=== PATIENT | male | born 1930 | race Caucasian/White ===

== ENCOUNTER → 2016-04-11 | Outpatient (CLI) | payer MEDICARE ==
[~2016-04-11] MED LIST: ASP81TEC PO; ASPI-586 PO; ASPI-983 PO; ATEN25TA PO; AVADART; AVOD0.5CAP PO; CLON1PAT33 TD; CLOP75TA PO; ISM30TCR PO; ISOS30TA3 PO; LISI10TA PO; MELA1CAP3 PO; METO50TA2 PO; MTP50T PO; MULT-35 PO; MULT1CAP27 PO; NYST1000 PO; OMEP40CA36 PO; POLY1530 PO; RT-ALBUINH IH; SIME125C PO; SIMV20TA3 PO; SIMV40TA4 PO; WHEA1POW PO
--- OUTSIDE RECORDS SUMMARY | 2016-04-11 14:08 | XMS REPORT | Continuity of Care Document ---
Author Author [facility] Organization [facility] Address Unknown Phone Unavailable Care Team Providers Care Social Professionals Name Role Phone ELISEO JIMENEZ MD PCP Insurance Providers Payer Name Policy Number Subscriber Name Relationship W[employer] Medicare [id number] Kraig Pack 18 Self / Same As Patient Blue Cross [facility] Supp [id number] Kraig Pack 18 Self / Same As Patient Advance Directives Directive Response Recorded Date/Time Advance Directives Yes 03/30/14 10:43am Health Care Power of Office Employee Y YOSEF SEWELL 03/30/14 10:43am Organ Donor No 03/30/14 10:43am Resuscitation Status Full Code 03/30/14 10:43am Problems No known problems or medical conditions. Medications Medication Dose Route Sig Days/Qty Instructions Order Date Discontinued Date Status [Avadart] DAILY 12/21/09 12/21/09 Discontinued Multivitamins 1 Each PO DAILY 12/21/09 Active Aspirin 81 Mg PO DAILY 12/21/09 Active Dutasteride 0.5 Mg PO DAILY 12/21/09 09/05/10 Discontinued Clopidogrel Bisulfate 75 Mg PO DAILY 02/25/10 03/30/14 Discontinued Simvastatin 40 Mg PO DAILY 02/25/10 Active Metoprolol Tartrate (Lopressor) 50 Mg PO DAILY 02/26/10 Active Isosorbide Mononitrate 30 Mg PO DAILY@0630 02/26/10 Active Lisinopril (Zestril) 10 Mg PO DAILY 03/28/10 03/30/14 Discontinued Social History Social History Problem Response Recorded Date/Time Recent Foreign Travel No 03/30/2014 10:56am Smoking Status Never a Smoker 03/30/2014 10:52am Do you dip or chew tobacco? No 03/30/2014 10:52am Query Response Start Date Stop Date Smoking Status Never a Smoker Hospital Discharge Instructions No hospital discharge instructions. Plan of Care No plan of care. Functional Status No functional status results. Allergies, Adverse Reactions, Alerts Allergen Type Severity Reaction Status Last Updated No Known Drug Allergies Active 12/21/09 Immunizations No immunization records. Vital Signs Acute Vital Signs Vital Response Date/Time Temperature (Fahrenheit) 98.0 degrees F (97.6 - 99.5) Temperature (Calculated Celsius) 36.64191 degrees C (36.4 - 37.5) Temperature Source Tympanic Pulse Rate (adult) 56 bpm (60 - 90) Respiratory Rate 14 bpm (12 - 24) O2 Sat by Pulse Oximetry 96 % (88 - 100) Blood Pressure 109/66 mm Hg Blood Pressure 109/66 mm Hg Pain Pain Intensity 0 Pain Pain Intensity 0 Height (Feet) 6 feet Height (Inches) 1.00 inches Height (Calculated Centimeters) 185.163519 cm Weight (Pounds) 240 pounds Weight (Calculated Grams) 888249.170 gm Weight (Calculated Kilograms) 108.335158 kilograms Height 6 ft 1 in Weight 240 lb Body Mass Index 31.7 kg/m^2 Results No known relevant diagnostic tests, laboratory data and/or discharge summary. Procedures Procedure Status Date Provider(s) Diagnostic colonoscopy completed 03/30/14 SHONNA TORO MD Encounters Encounter Location Date/Time Registered Surgical Day Care [facility] 03/30/14 8:46am Registered Clinic [facility] 03/26/14 6:18am
== END ==
LOC: RAD 14:04
PROVIDERS: ATTEND Internal Medicine Cardiovascular Disease
DX: I73.9 Peripheral vascular disease, unspecified (principal); I65.23 Occlusion and stenosis of bilateral carotid arteries; I25.10 Atherosclerotic heart disease of native coronary artery without angina pectoris; E78.4 Other hyperlipidemia; R06.09 Other forms of dyspnea
CPT/HCPCS: 93923

== ENCOUNTER → 2016-04-18 | Outpatient (CLI) | payer MEDICARE ==
[~2016-04-18] VITALS: Ht 185.4 cm; Wt 107.0 kg
[~2016-04-18] MED LIST changes: +REGADENOSON 0.4 MG/5 ML SYR (LEXISCAN) IV ONE
--- OUTSIDE RECORDS SUMMARY | 2016-04-18 11:03 | XMS REPORT | Continuity of Care Document ---
Author Author [facility] Organization [facility] Address Unknown Phone Unavailable Care Team Providers Care Regulated Program Manager Name Role Phone ELISEO JIMENEZ MD PCP Insurance Providers Payer Name Policy Number Subscriber Name Relationship Wps Medicare [id number] Kraig Pack 18 Self / Same As Patient Blue Cross [facility] Supp [id number] Kraig Pack 18 Self / Same As Patient Advance Directives Directive Response Recorded Date/Time Advance Directives Yes 03/30/14 10:43am Health Care Power of Lifestyle Consultant Y YOSEF SEWELL 03/30/14 10:43am Organ Donor [...] F (97.6 - 99.5) Temperature (Calculated Celsius) 36.93104 degrees C (36.4 - 37.5) Temperature Source Tympanic Pulse Rate (adult) 56 bpm (60 - 90) Respiratory Rate 14 bpm (12 - 24) O2 Sat by Pulse Oximetry 96 % (88 - 100) Blood Pressure 109/66 mm Hg Blood Pressure 109/66 mm Hg Pain Pain Intensity 0 Pain Pain Intensity 0 Height (Feet) 6 feet Height (Inches) 1.00 inches Height (Calculated Centimeters) 185.994472 cm Weight (Pounds) 240 pounds Weight (Calculated Grams) 780495.170 gm Weight (Calculated Kilograms) 108.462638 kilograms Height 6 ft 1 in Weight 240 lb Body Mass Index 31.7 kg/m^2 Results No known relevant diagnostic tests, laboratory data and/or discharge summary. Procedures Procedure Status Date Provider(s) Diagnostic colonoscopy completed 03/30/14 SHONNA TORO MD Encounters Encounter Location Date/Time Registered Surgical Day Care [facility] 03/30/14 8:46am Registered Clinic [facility] 03/26/14 6:18am
[2016-04-18] MEDS: CATHETER FLUSH 10 ML SYR IV PRN ×2 (11:42→13:05)
[2016-04-18 13:03] VITALS: BP 120/76
--- NOTE | 2016-04-20 08:16 | STRESS TEST ---
PROCEDURE PHYSICIAN: SOLANGE BERMAN DATE OF PROCEDURE: 04/18/2016 RESTING AND POST REGADENOSON TECHNETIUM 99M TETROFOSMIN SPECT CT IMAGING: ORDERING PHYSICIAN: Dr. Berman. PRIMARY PHYSICIAN: Dr. Belcher. INDICATION FOR THE PROCEDURE: Coronary artery disease. Baseline images were carried out after injection of 10.13 mCi of technetium 99m tetrofosmin. This was followed by 0.4 mg of regadenoson and 29 mCi of technetium 99m tetrofosmin for stress imaging. The electrocardiogram showed sinus rhythm with incomplete right bundle branch block at baseline and this did not change significantly with the regadenoson infusion. Overall, the patient tolerated the procedure well. Review of images at rest and following stress indicates diminished count uptake in the diaphragmatic wall of the left ventricle both at rest and following regadenoson infusion. This appears to be due to diaphragmatic attenuation. Gated images show normal global left ventricular systolic function with normal regional wall motion, including the diaphragmatic wall of the left ventricle. Left ventricular ejection fraction is calculated to be 73%. Left ventricular end-diastolic volume is 40 mL. TID is absent (1.13). CONCLUSIONS: 1. No evidence of any significant myocardial ischemia or infarction on this study. 2. Normal regional wall motion. 3. Normal global left ventricular systolic function with a calculated ejection fraction of 73%. 4. Normal left ventricular cavity size. Job ID: [id number] Dictated Date: 04/19/2016 13:13:32 Farm Implement Engine Mechanic Date: 04/20/2016 08:13:26 / [email or web address]
== END ==
LOC: CARD 11:00
PROVIDERS: ATTEND Internal Medicine Cardiovascular Disease
DX: I25.10 Atherosclerotic heart disease of native coronary artery without angina pectoris (principal); I65.23 Occlusion and stenosis of bilateral carotid arteries; R06.09 Other forms of dyspnea; E78.4 Other hyperlipidemia
CPT/HCPCS: 78452; 93017

== ENCOUNTER → 2017-05-31 | Outpatient (CLI) | payer MEDICARE ==
[~2017-05-31] MED LIST changes: +METO50TA15 PO; -METO50TA2 PO; -REGADENOSON 0.4 MG/5 ML SYR (LEXISCAN) IV ONE
== END ==
LOC: CARD 13:02
PROVIDERS: ATTEND Nurse Practitioner Family
DX: I25.10 Atherosclerotic heart disease of native coronary artery without angina pectoris (principal); I65.29 Occlusion and stenosis of unspecified carotid artery; R06.09 Other forms of dyspnea; E78.5 Hyperlipidemia, unspecified; I35.1 Nonrheumatic aortic (valve) insufficiency
CPT/HCPCS: 93306

== ENCOUNTER → 2017-07-11 | Outpatient (RCR) | payer MEDICARE | END | disposition home or self-care (01) | LOC: CR3 06-11 05:00 | DX: Z29.8 Encounter for other specified prophylactic measures (principal) ==

== ENCOUNTER 2017-08-08 13:07 | Outpatient (RCR) | payer MEDICARE | END 2017-08-12 | disposition home or self-care (01) | LOC: CR3 13:07 | DX: Z29.8 Encounter for other specified prophylactic measures (principal) ==

== ENCOUNTER 2017-08-20 13:18 | Outpatient (RCR) | payer MEDICARE | END 2017-09-12 | disposition home or self-care (01) | LOC: CR3 13:18 | DX: Z29.8 Encounter for other specified prophylactic measures (principal) ==

== ENCOUNTER → 2017-10-29 | Outpatient (CLI) | payer MEDICARE | END | disposition home or self-care (01) | LOC: PREOP 05:48 | PROVIDERS: ATTEND Surgery | DX: Z01.818 Encounter for other preprocedural examination (principal) ==

== ENCOUNTER → 2018-08-13 | Outpatient (CLI) | payer MEDICARE ==
[~2018-08-13] VITALS: Ht 185.4 cm; Wt 101.2 kg
[~2018-08-13] MED LIST changes: +CATHETER FLUSH 10 ML SYR IV PRN; +REGADENOSON 0.4 MG/5 ML SYR (LEXISCAN) IV ONE
--- NOTE | 2018-08-14 13:28 | STRESS TEST ---
DATE OF SERVICE: 08/13/2018 RESTING AND POST REGADENOSON TECHNETIUM-99M TETROFOSMIN SPECT CT IMAGING ORDERING PHYSICIAN: Dr. Berman. PRIMARY CARE PHYSICIAN: Dr. Belcher. CLINICAL DIAGNOSES: Coronary artery disease. Baseline images were carried out after injection of 10.36 mCi of technetium-99m Tetrofosmin. This was followed by 0.4 mg of regadenoson and 30.4 mCi of technetium-99m Tetrofosmin for stress imaging. The electrocardiogram showed sinus rhythm with right bundle branch block and with an early repolarization pattern. The electrocardiogram did not change significantly with the regadenoson infusion. The patient tolerated the procedure well. Review of images at rest and following stress indicates diminished count uptake in the diaphragmatic wall of the left ventricle, both at rest and following regadenoson infusion. This appears to be diaphragmatic attenuation. Gated images show normal global left ventricular systolic function and normal regional wall motion, including the diaphragmatic wall of the left ventricle. Left ventricular end diastolic volume is 43 mL. TID is absent (1.1). Left ventricular ejection fraction is calculated to be 69%. CONCLUSIONS: 1. This study does not indicate evidence of significant myocardial ischemia or infarction. 2. Normal regional wall motion. 3. Normal global left ventricular systolic function with a calculated ejection fraction of 69%. Job ID: [id number] DocumentID: [id number] Dictated Date: 08/14/2018 12:24:00 Pharmacy Intake Technician Date: 08/14/2018 13:27:25 Dictated By: SOLANGE BERMAN MD, MA, FACP, FACC,
== END ==
LOC: CARD 11:03
PROVIDERS: ATTEND Internal Medicine Cardiovascular Disease
DX: I25.10 Atherosclerotic heart disease of native coronary artery without angina pectoris (principal); I77.9 Disorder of arteries and arterioles, unspecified; E78.5 Hyperlipidemia, unspecified; G62.9 Polyneuropathy, unspecified
CPT/HCPCS: 78452; 93017

== ENCOUNTER 2019-10-14 12:46 | Emergency (ER) | payer MEDICARE ==
[~2019-10-14] VITALS: Ht 185.4 cm; Wt 109.0 kg
[~2019-10-14 12:46] MED LIST changes: -CATHETER FLUSH 10 ML SYR IV PRN; +OMEP40CA27 PO; -OMEP40CA36 PO; -REGADENOSON 0.4 MG/5 ML SYR (LEXISCAN) IV ONE; +SIMV20TA26 PO; -SIMV20TA3 PO
--- NOTE | 2019-10-14 13:17 | ED Fall/Injury ---
General Chief Complaint: Trauma-Non Activation Stated Complaint: FELL AT HOME Source: patient Exam Limitations: no limitations (KO SERRANO STUDENT) History of Present Illness Date Seen by Provider: Oct 14, 2019 Time Seen by Provider: 13:00 Initial Comments Kraig Pack is a 88 year old male who was seen today due to pain in his R side and back after a fall at home. He describes falling from his wheeled swivel chair after turning in it to reach for something. He fell onto a trash can, and he is experiencing pain where he hit the trash can. Describes a sharp pain exacerbated by laying on his R side, turning motions, and palpation to the area. He reports he does not remember all the details of his fall, but denies any dizziness, light headedness, or loss of consciousness during the fall. He does experience dizziness with standing at times. Denies hitting his head, or experiencing any other pain from his fall. Occurred: this morning Severity: mild Injuries/Pain Location: back (flank/back) Context: slipped Loss of Consciousness: no loss of consciousness Associated Symptoms (Fall): Denies Symptoms (KO SERRANO STUDENT) Initial Comments Fall happened this morning. He is not on any blood thinners or antiplatelet. He does not want anything for pain while at rest. (NISSA CAM) Allergies and Home Medications Allergies Coded Allergies: No Known Drug Allergies (Verified , 11/04/15) Home Medications Isosorbide Mononitrate 30 Mg Tab.er.24h, 30 MG PO DAILY@1630, (Reported) Metoprolol Tartrate 50 Mg Tablet, 50 MG PO BID TAKES @ 1630 & 2100 Prescribed by: EDWARD TREVIÑO on 08/25/15 1343 Multivitamin 1 Each Tablet, 1 EACH PO DAILY Prescribed by: CALVIN RODRIGUEZ on 11/11/14 1227 Simvastatin 20 Mg Tablet, 20 MG PO DAILY@1630, (Reported) Patient Home Medication List Home Medication List Reviewed: Yes (NISSA CAM) Review of Systems Review of Systems Constitutional: No dizziness, No other (light headedness) Cardiovascular: No palpitations, No syncope Musculoskeletal: back pain (R flank and back) Psychiatric/Neurological: Denies Headache, Denies Numbness, Denies Paresthesia (chronic neuropathy), Denies Tingling (KO SERRANO STUDENT) Ears, Nose, Mouth, Throat: denies nose pain, denies epistaxis Gastrointestinal: No abdominal pain, No nausea Genitourinary: No discharge, No dysuria (NISSA CAM) All Other Systems Reviewed Negative Unless Noted: Yes (NISSA CAM) Past Uwkerjd-Vwmhzy-Pmixgy Hx Patient Social History Alcohol Use: Denies Use Recreational Drug Use: No Smoking Status: Never a Smoker (MAGGIEKO [email or web address] STUDENT) Past Medical History Asthma Coronary Artery Disease, High Cholesterol Reproductive Disorders: Yes Sexually Transmitted Disease: No HIV/AIDS: No Chronic Constipation, Hemorrhoids Hearing Impairment: Denies Adverse Reaction/Blood Tranf: No (KO SERRANO [email or web address] STUDENT) Family Medical History DENIES HISTORY No Pertinent Family Hx ([email or web address] [email or web address] STUDENT) Physical Exam Vital Signs Vital Signs - First Documented 10/14/19 12:53 Temp 36.1 Pulse 74 Resp 18 B/P (MAP) 121/78 (92) Pulse Ox 98 (NISSA CAM) Vital Signs Capillary Refill : (MAGGIEKO [email or web address] STUDENT) Height, Weight, BMI Height: 6'1.00" Weight: 223lbs. 0.0oz. 101.944814te; 29.4 BMI Method:Stated General Appearance: no apparent distress, obese Neck: non-tender, full range of motion, supple, normal inspection Cardiovascular: regular rate, rhythm, no gallop, no JVD, no murmur Back: no vertebral tenderness, other (R rib pain around rib 8-10) Neurologic/Psychiatric: alert, normal mood/affect, oriented x 3 Skin: normal color, warm/dry (KO SERRANO [email or web address] STUDENT) Respiratory: chest non-tender (right mid sagittal ribs 8 through 10), lungs clear, normal breath sounds, no respiratory distress, no accessory muscle use Gastrointestinal: normal bowel sounds, non tender, soft (NISSA CAM) Earl Coma Score Best Eye Response: (4) Open Spontaneously Best Verbal Response: (5) Oriented Best Motor Response: (6) Obeys Commands [place] Total: 15 (NISSA CAM) Progress/Results/Core Measures Results/Orders My Orders Orders - NISSA CAM Ribs, Right 2-3 Views (10/14/19 13:10) (NISSA CAM) Vital Signs/I&O 10/14/19 12:53 Temp 36.1 Pulse 74 Resp 18 B/P (MAP) 121/78 (92) Pulse Ox 98 (NISSA CAM) Progress Progress Note : Time: 13:25 Progress Note Plan plain films. He declined having for pain. I attest that I saw this patient alongside the medical student and agree with his documented history, physical exam and review of systems except as otherwise noted. (NISSA CAM) Diagnostic Imaging Diagonstic Imaging: Xray Plain Films/CT/US/NM/MRI: chest Comments NAME: KRAIG PACK [facility] REC#: [id number] PT STATUS: REG ER : 1930 PHYSICIAN: NISSA CAM MD ADMIT DATE: 10/14/19/ER Draft Date of Exam:10/14/19 RIBS, RIGHT 2-3 VIEWS INDICATION: Fall. Right rib pain. FINDINGS: There is a nondisplaced fracture along the posterior right ninth rib. No destructive bony changes. The right lung is well aerated and clear. No pneumothorax or pleural effusion. IMPRESSION: Nondisplaced fracture posterior right ninth rib. Dictated on workstation # [id number] Dict: 10/14/19 1407 Trans: 10/14/19 1412 [id number] Interpreted by: YOAN DALY MD Electronically signed by: Reviewed: Reviewed by Me (NISSA CAM) Departure Impression Primary Impression: Closed rib fracture Qualified Codes: S22.31XA - Fracture of one rib, right side, initial encounter for closed fracture Disposition: 01 HOME, SELF-CARE Condition: Stable Departure-Patient Inst. Decision time for Depature: 14:18 (NISSA CAM) Referrals: ELISEO JIMENEZ MD (PCP/Family) Primary Care Physician Patient Instructions: Rib Fracture (DC) Add. Discharge Instructions: Ice made with heat as well as topical creams such as icy hot or Biofreeze may be helpful for pain. Tylenol 650 mg every 8 hours as necessary for pain. Hydrocodone one tablet every 6 hours as necessary for breakthrough pain. Will cause drowsiness as well as constipation. MiraLAX 1 capful in 6-8 ounces of fluid every 8 hours as necessary until constipation is relieved. Normal bone heals in about 6 weeks. Expect to be sore for the next 4 weeks. Return to the ER if you have onset of shortness of air. All discharge instructions reviewed with patient and/or family. Voiced understanding. Scripts Hydrocodone/Acetaminophen (Hydrocodone-Acetamin 5-325 mg) 1 Each Tablet 1 EACH PO Q6H PRN for PAIN-BREAKTHROUGH, #12 TAB 0 Refills Prov: NISSA CAM 10/14/19 KO SERRANO MED STUDENT Oct 14, 2019 13:17 NISSA CAM Oct 14, 2019 13:27
--- NOTE | 2019-10-14 14:12 | Diagnostic Imaging Report ---
INDICATION: Fall. Right rib pain. FINDINGS: There is a nondisplaced fracture along the posterior right ninth rib. No destructive bony changes. The right lung is well aerated and clear. No pneumothorax or pleural effusion. IMPRESSION: Nondisplaced fracture posterior right ninth rib. Dictated by: Dictated on workstation # [id number]
--- OUTSIDE RECORDS SUMMARY | 2019-10-14 14:19 | XMS REPORT ---
Author Author [employer] program facilitator rocket staff [facility] [employer] [facility] Address [address] [address] Care Team Providers Care Poly Area Supervisor Name Role Phone ELISEO JIMENEZ Unavailable SHONNA EASLEY MD Unavailable Unavailable ELISEO JIMENEZ MD Unavailable Unavailable DARIO LOPEZ [facility], [facility] CHARAN CCDS Unavailable Unavaildomingo BISHOP MD [facility], SOLANGE FARRAR CCDS Unavailable Unavailabl GRACIE Velez ELECTRICITY TRADER Unavailable Unavailable ELISEO JIMENEZ MD Unavailable Unavailable SALVADOR MATHEWS MD Unavailable Unavailable SALVADOR MATHEWS MD Unavailable Unavailable Unavailable Unavailable Unavailable Unavailable Allergies The data below is from unstructured sources Allergen Type Severity Reaction Status Last Updated No Known Drug Allergies Active 12/21/09 No known allergies. Encounters Encounter Date Encounter Type Encounter Diagnosis Care Provider Facility Start: Patient encounter SOLANGE BISHOP MD [facility] 08-13-2018 [facility] ([id number]) Start: Patient encounter SOLANGE BISHOP MD [facility] 08-13-2018 [facility] ([id number]) Start: Patient encounter NATO DUTTON [facility] 10-29-2017 [facility] ([id number]) Start: Patient encounter SHONNA EASLEY MD [facility] 10-29-2017 [facility] ([id number]) Start: Patient encounter ELISEO JIMENEZ MD Not [facility] ([id number]) 08-20-2017 procedure End: 09-12-2017 Start: Patient encounter ELISEO JIMENEZ MD [facility] 08-20-2017 [facility] ([id number]) End: 09-11-2017 Start: Patient encounter ELISEO JIMENEZ MD [facility] ([id number]) 08-17-2017 procedure Start: Patient encounter ELISEO JIMENEZ MD [facility] ([id number]) 08-15-2017 procedure Start: Patient encounter ELISEO JIMENEZ MD [facility] ([id number]) 08-13-2017 procedure Start: Patient encounter ELISEO JIMENEZ MD [facility] ([id number]) 08-08-2017 procedure End: 08-12-2017 Start: Patient encounter ELISEO JIMENEZ MD [facility] ([id number]) 08-03-2017 procedure Start: Patient encounter ELISEO JIMENEZ MD [facility] ([id number]) 08-01-2017 procedure Start: Patient encounter ELISEO JIMENEZ MD [facility] ([id number]) 07-30-2017 procedure Start: Patient encounter ELISEO JIMENEZ MD [facility] ([id number]) 07-27-2017 procedure Start: Patient encounter ELISEO JIMENEZ MD [facility] ([id number]) 07-25-2017 procedure Start: Patient encounter ELISEO JIMENEZ MD [facility] ([id number]) 07-23-2017 procedure Start: Patient encounter ELISEO JIMENEZ MD [facility] ([id number]) 07-20-2017 procedure Start: Patient encounter ELISEO JIMENEZ MD [facility] ([id number]) 07-16-2017 procedure Start: Patient encounter 07-13-2017 procedure Start: Patient encounter 07-11-2017 procedure End: 07-11-2017 Start: Patient encounter ELISEO JIMENEZ MD [facility] 07-11-2017 procedure [facility] ([id number]) End: 07-10-2017 Start: Patient encounter ELISEO JIMENEZ MD [facility] ([id number]) 07-09-2017 procedure Start: Patient encounter ELISEO JIMENEZ MD [facility] ([id number]) 07-04-2017 procedure Start: Patient encounter ELISEO JIMENEZ MD [facility] ([id number]) 07-02-2017 procedure Start: Patient encounter ELISEO JIMENEZ MD [facility] ([id number]) 06-29-2017 procedure Start: Patient encounter ELISEO JIMENEZ MD [facility] ([id number]) 06-25-2017 procedure Start: Patient encounter ELISEO JIMENEZ MD [facility] ([id number]) 06-22-2017 procedure Start: Patient encounter ELISEO JIMENEZ MD [facility] ([id number]) 06-20-2017 procedure Start: Patient encounter ELISEO JIMENEZ MD [facility] ([id number]) 06-18-2017 procedure Start: Patient encounter ELISEO JIMENEZ MD [facility] ([id number]) 06-13-2017 procedure Start: Patient encounter ELISOE JIMENEZ MD [facility] ([id number]) 06-11-2017 procedure Start: Patient encounter 05-31-2017 procedure Start: Patient encounter SOLANGE BISHOP MD [facility] Not [facility] ([id number]) 04-18-2016 procedure Start: Patient encounter SOLANGE DAVIS [facility] ([id number]) 04-11-2016 procedure Start: Patient encounter SOLANGE BISHOP MD [facility] Not [facility] ([id number]) 04-11-2016 procedure Start: Patient encounter SOLANGE BISHOP MD [facility] 04-11-2016 procedure [facility] ([id number]) Start: Patient encounter ELISEO JIMENEZ MD [facility] ([id number]) 02-21-2016 procedure Start: Patient encounter SHONNA EASLEY MD [facility] 11-08-2015 procedure [facility] ([id number]) End: 11-08-2015 Start: Patient encounter SHONNA EASLEY MD [facility] 11-04-2015 procedure [facility] ([id number]) End: 11-04-2015 Start: Evaluation and SALVADOR MATHEWS MD [facility] 08-20-2015 management of [facility] inpatient ([id number]) End: 08-25-2015 Start: Patient encounter GRACIE KIM Not Availab le ([id number]) 04-13-2015 procedure Start: Patient encounter GRACIE KIM [facility] 04-13-2015 procedure [facility] ([id number]) Start: Patient encounter SHONNA EASLEY MD [facility] ([id number]) 11-11-2014 procedure End: 11-11-2014 Start: Patient encounter SHONNA EASLEY MD [facility] 11-11-2014 procedure [facility] ([id number]) End: 11-11-2014 Start: Patient encounter SHONNA EASLEY MD [facility] 11-09-2014 procedure [facility] ([id number]) Start: Patient encounter ELISEO JIMENEZ MD [facility] ([id number]) 09-03-2014 procedure Start: Patient encounter ELISEO JIMENEZ MD [facility] 09-03-2014 procedure [facility] ([id number]) Start: Patient encounter SHONNA EASLEY MD Not [facility] ([id number]) 03-30-2014 procedure End: 03-30-2014 Start: Patient encounter SHONNA EASLEY MD [facility] 03-30-2014 procedure [facility] ([id number]) End: 03-30-2014 Start: Patient encounter JOSE HUMPHRIES Not Availab le ([id number]) 09-04-2012 procedure Start: Patient encounter JOSE HUMPHRIES Not Availab le ([id number]) 02-28-2012 procedure ENCOUNTER FOR OTHER Encounter for other SHONNA EASLEY MD [facility] PREPROCEDURAL EXAMIN preprocedural [facility] urg examination ([id number]) EXAM PRE-OPERATIVE Pre-operative SHONNA EASLEY MD Not Almaz lauren ([id number]) NOS examination, unspecified Medical Equipment No Information Goals No Information Immunizations The data below is from unstructured sourcesNo immunization records.No immunization records.No immunization records.No immunization records.No immunization records.No immunization records.No immunization records.No immunization records.No immunization records. Interventions No Information Medications No Information Payers No Information Plan of Treatment The data below is from unstructured sources Discharge Date 11/04/15 12:59pm Prescriptions See Medication Section Discharge Date 11/08/15 9:35am Instructions/Education Provided EGD- ESOPHAGOGASTRODUODENOSCOPY Prescriptions See Medication Section Discharge Date 08/25/15 3:12pm Disposition 06 HOME HEALTH SERVICE Instructions/Education Provided Acut e Abdominal Pain (GEN) Prescriptions See Medication Section Referrals SHONNA EASLEY MD (Unspe cified) - Address: [address] [place] [address] [id number] Reason(s) for Referral: DR EASLEY OFFICE WILL CONTACT YOU REGARDING FOLLOW UP APPOINTMENTS WITH HIMSELF AND DR MASON. 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 without TAYL OR sis and angina pectoris ; Translati ons: other heart [Coronary atherosclerosis o f disease unspecified type of vessel, solomon (20 sources) or graft] Disorders of Hyperlipidemia, unspecified ; Chronic GRACIE lipid Translations: [Pure BAIMA metabolism hypercholesterolemia] (21 sources) Essential Essential (primary) hypertension Chronic SALVADOR hypertension REID LOPEZ (2 sources) Heart valve Nonrheumatic aortic (valve) Chronic NA NA disorders insufficiency (3 sources) Hemorrhoids Residual hemorrhoidal skin tags Episodic SHONNA (2 sources) KAUSHAL LOPEZ Immunization Screening examination for other Episodic SHONNA s and specified bacterial and spirochetal KAUSHAL LOPEZ screening diseases for infectious disease (2 sources) Occlusion or Occlusion and stenosis of Chronic AL I DARIO stenosis of unspecified carotid artery ; FAC C precerebral Translations: [Occlusion an d arteries stenosis of bilateral carot id (14 sources) arteries] Other Disorder of arteries and Chronic HEA THER circulatory arterioles, unspecified BAIMA disease (6 sources) Other Adult hypertrophic pyloric stenosis Episodic SALVADOR disorders of REID LOPEZ stomach and duodenum (6 sources) Other Diarrhea Episodic SHONNA gastrointest KUASHAL LOPEZ inal disorders (2 sources) Other Constipation, unspecified Episodic RI CK gastrointest TONY LOPEZ inal disorders (2 sources) Other lower Other forms of dyspnea Episodic MITUL ER respiratory BAIMA disease (17 sources) Other lower Other respiratory abnormalities Episodic CRYSTAL respiratory YANDEL disease (1 source) Other Polyneuropathy, unspecified Chronic ALI DARIO nervous FACC system disorders (3 sources) Other Special screening for malignant Episodic SHONNA screening neoplasms of colon KAUSHAL LOPEZ for suspected conditions (not mental disorders or infectious disease) (2 sources) Peripheral Peripheral vascular disease, Chronic ALI DARIO and visceral unspecified MD FACC atherosclero sis (9 sources) Residual Encounter for other specified Episodic ELISEO codes; prophylactic measures TONY LOPEZ unclassified (6 sources) Past or Other Problems Problem Problem Date Last Documented Episodic/Chr Provider Classificati Recorded Date onic on Coronary Presence of coronary angioplasty Episodic SALVADOR atherosclero implant and graft REID LOPEZ sis and other heart disease (1 source) Other lower Wheezing Episodic ELISEO respiratory TONY LOPEZ disease (3 sources) Procedures Date Procedure Procedure Detail Performing Cl inician Start: DILATION OF SALVADOR MATHEWS Jenelle Mccain 08-21-2015 STOMACH, PYLORUS, ENDO Start: DRAINAGE OF SALVADOR MATHEWS Jenelle Mccain 08-21-2015 STOMACH, PERCUTANEOUS ENDOSC Start: EXCISION OF SALVADORTAHIR Mccain 08-21-2015 DUODENUM, ENDO, DIAGN DILATION OF SALVADOR MATHEWS MD STOMACH, PYLORUS, ENDO DRAINAGE OF SALVADOR MATHEWS MD STOMACH, PERCUTANEOUS ENDOSC EXCISION OF SALVADOR MATHEWS MD DUODENUM, ENDO, DIAGN Results The data below is from unstructured sourcesNo known relevant diagnostic tests, laboratory data and/or discharge summary.No known relevant diagnostic tests, laboratory data and/or discharge summary.No known relevant diagnostic tests, laboratory data and/or discharge summary.No known relevant diagnostic tests, laboratory data and/or discharge summary.No known rel evant diagnostic tests, laboratory data and/or discharge summary.No known releva nt diagnostic tests, laboratory data and/or discharge summary.No known relevant diagnostic tests, laboratory data and/or discharge summary.No relevant diagnosti c test, laboratory data and/or discharge summary information available.No releva nt diagnostic test, laboratory data and/or discharge summary information availab le.No relevant diagnostic test, laboratory data and/or discharge summary informa tion available.No relevant diagnostic test, laboratory data and/or discharge sum galo information available.No relevant diagnostic test, laboratory data and/or d ischarge summary information available.No relevant diagnostic test, laboratory d lesvia and/or discharge summary information available. Social History No Information Vital Signs The data below is from unstructured sources Vital Response Date/Time Height (Feet) 6 feet 12:44pm Height (Inches) 1.50 inches 11/04/2015 12:44pm Height (Calculated Centimeters) 186. 414668 cm 11/04/2015 12:44pm Weight (Pounds) 210 pounds 11/04/2015 12:44pm Weight (Ounces) 0.6 oz 0 11/04/2015 12:44pm Weight (Calculated Grams) 25845.408 gm 11/04/2015 12:44pm Weight (Calculated Kilograms) 95.271 408 kilograms 11/04/2015 12:44pm Calculated BMI 27.33 12:44pm Vital Response Date/Time Temperature (Fahrenheit) 96.4 degree s F (97.6 - 99.5) 11/08/2015 9:35am Temperature (Calculated Celsius) 35. 07287 degrees C (36.4 - 37.5) 11/08/2015 9:35am Temperature Source Tympanic 11/08/2015 9:35am Pulse Rate (adult) 65 bpm (60 - 90) 11/08/2015 9:35am Respiratory Rate 18 bpm (12 - 24) 11/08/2015 9:35am O2 Sat by Pulse Oximetry 95 % (88 - 100) 11/08/2015 9:35am Blood Pressure 120/67 mm Hg 11/08/2015 9:35am Pain Numeric Pain Scale 0-No Pain 11/08/2015 9:35am Height (Feet) 6 feet 7:33am Height (Inches) 1.50 inches 11/08/2015 7:33am Height (Calculated Centimeters) 186. 095592 cm 11/08/2015 7:33am Weight (Pounds) 210 pounds 11/08/2015 7:33am Weight (Ounces) 0.6 oz 0 11/08/2015 7:33am Weight (Calculated Grams) 37687.408 gm 11/08/2015 7:33am Weight (Calculated Kilograms) 95.271 408 kilograms 11/08/2015 7:33am Calculated BMI 27.3 10/11 7:30am Vital Response Date/Time Temperature (Fahrenheit) 97.9 degree s F (97.6 - 99.5) 08/25/2015 2:44pm Temperature (Calculated Celsius) 36. 27747 degrees C (36.4 - 37.5) 08/25/2015 2:44pm Temperature Source Tympanic 08/25/2015 2:44pm Pulse Rate (adult) 90 bpm (60 - 90) 08/25/2015 2:44pm Respiratory Rate 20 bpm (12 - 24) 08/25/2015 2:44pm O2 Sat by Pulse Oximetry 96 % (88 - 100) 08/25/2015 2:44pm Blood Pressure 137/63 mm Hg 08/25/2015 2:44pm Blood Pressure Mean 87 mm Hg 08/25/2015 2:44pm Pain Pain Intensity 0 2015 2:44pm Height (Feet) 6 feet 12/2015 3:35pm Height (Inches) 1.00 inches 08/20/2015 3:35pm Height (Calculated Centimeters) 185. 074478 cm 08/20/2015 3:35pm Weight (Pounds) 198 pounds 08/25/2015 6:28am Weight (Ounces) 0.6 oz 0 08/25/2015 6:28am Weight (Calculated Grams) 50525.300 gm 08/25/2015 6:28am Weight (Calculated Kilograms) 89.828 300 kilograms 08/25/2015 6:28am Calculated BMI 30.3 08/10 3:35pm Vital Response Date/Time Temperature (Fahrenheit) 98.0 degree s F (97.6 - 99.5) Temperature (Calculated Celsius) 36. 18575 degrees C (36.4 - 37.5) Temperature Source Tympanic Pulse Rate (adult) 56 bpm (60 - 90) Respiratory Rate 14 bpm (12 - 24) O2 Sat by Pulse Oximetry 96 % (88 - 100) Blood Pressure 109/66 mm Hg Pain Pain Intensity 0 Height (Feet) 6 feet Height (Inches) 1.00 inches Height (Calculated Centimeters) 185. 216698 cm Weight (Pounds) 240 pounds Weight (Calculated Grams) 005587.170 gm Weight (Calculated Kilograms) 108.86 2170 kilograms Height 6 ft 1 in Weight 240 lb Body Mass Index 31.7 kg/m^2 Vital Response Date/Time Temperature (Fahrenheit) 97.8 degree s F (97.6 - 99.5) 11/11/2014 4:40pm Temperature (Calculated Celsius) 36. 45102 degrees C (36.4 - 37.5) 11/11/2014 4:40pm Temperature Source Temporal 11/11/2014 4:40pm Pulse Rate (adult) 69 bpm (60 - 90) 11/11/2014 4:40pm Respiratory Rate 18 bpm (12 - 24) 11/11/2014 4:40pm O2 Sat by Pulse Oximetry 95 % (88 - 100) 11/11/2014 4:40pm Blood Pressure 110/69 mm Hg 11/11/2014 4:40pm Pain Pain Intensity 1 2014 4:40pm Height (Feet) 6 feet 04/2014 11:10am Height (Inches) 1.00 inches 11/11/2014 11:10am Height (Calculated Centimeters) 185. 487631 cm 11/11/2014 11:10am Weight (Pounds) 234 pounds 11/11/2014 11:10am Weight (Ounces) 3.2 oz 0 11/11/2014 11:10am Weight (Calculated Grams) 975835.334 gm 11/11/2014 11:10am Weight (Calculated Kilograms) 106.23 1334 kilograms 11/11/2014 11:10am Calculated BMI 30.87 04/2014 11:10am No vital sign information available. Functional Status The data below is from unstructured sources Query Response Date Parth rded Patient Orientation Person Place Time Situation Eyes Open August 25, 2015 3:17pm Comprehension Ability Understands Co ncepts August 22, 2015 8:10pm No functional status information available. Mental Status No Information Advance Directives Directive Response Recor ded Date/Time Advance Directives Yes 0 11/04/15 12:44pm Health Care Power of Electrician [employer] No 11/04/15 12:44pm Organ Donor No 11/04/15 12:44pm Resuscitation Status Full Code 11/04/15 12:44pm Directive Response Recor ded Date/Time Advance Directives Yes 0 11/08/15 7:33am Health Care Power of Electrician [employer] No 11/08/15 7:33am Organ Donor No 11/08/15 7:33am Resuscitation Status Full Code 11/08/15 7:33am Directive Response Recor ded Date/Time Advance Directives Yes 0 08/20/15 5:07pm Health Care Power of Electrician [employer] No 08/20/15 5:07pm Organ Donor No 08/20/15 5:07pm Resuscitation Status Full Code 08/20/15 5:07pm Directive Response Recor ded Date/Time Advance Directives Yes 0 03/30/14 10:43am Health Care Power of Electrician [employer] Y YOSEF BLAKE N 03/30/14 10:43am Organ Donor No 03/30/14 10:43am Resuscitation Status Full Code 03/30/14 10:43am Directive Response Recor ded Date/Time Advance Directives Yes 0 11/11/14 11:10am Health Care Power of [employer] Y YOSEF LOU N 11/11/14 11:10am Organ Donor No 11/11/14 11:10am Resuscitation Status Full Code 11/11/14 11:10am Directive Response Recor ded Date/Time Advance Directives Yes 0 11/08/15 7:33am Health Care Power of [employer] No 11/08/15 7:33am Organ Donor No 11/08/15 7:33am Discharge Instructions No hospital discharge instructions. Patient Instructions Physician Instructions Patient Instructions/FollowUp: Obtain details from Dr Easley clinic regarding appt with Dr Mason and follow up appt with Dr Easley Patient Problems: Duodenal obstruction HTN OOC VIA [place], [place] DISCHARGE ORDERS Height (Feet): 6 Height (Inches): 1.00 Weight (Pounds): 198 Weight (Ounces): 0.6 Reason Pt Homebound Obstructed stomach I Have Seen Pt [id number]: Yes Date of Face to Face: Aug 25, 2015 Discharged To: Home Diagnosis/Conditions HH Order: Med administration and BP monitoring PICC line care w/flushes *I certify that based on my findings, the following services are medically necessary Home Health Services: Services: Nursing Services My clinical findings support the need for the above services; see Diagnosis. Dicharge Diet: Liquid (non-chunky soup, jello, pudding, any liquids) Pneu Vac Indicated: Yes New, Converted, or Re-newed RX: Transmited to Pharmacy I certify that this patient is under my care and that I, a nurse practitioner or a physician; a hardware sales assistant working with me, had a face to face encounter that - meets the physician face to face encounter requirements with this patient as dated. Care Plan Patient Instructions:: Obtain details from Dr Kaushal stephens regarding appt with Dr Mason andfollow up appt with Dr Easley Patient Problems: Duodenal obstructionHTN OOC No hospital discharge instructions.No hospital discharge instruction information available.No hospital discharge instruction information available.No hospital discharge instruction information available. Additional Source Comments This clinical document has been generated using [employer] software that has been certified by the Office of the National Coordinator for Health Information Technology (ONC 15.99.04.3023.Diam.31.00.0.176335) and the National Committee for [employer] Developer (NCQA, as an eMeasure certified technology). FOR RECORDS PERTAINING TO PATIENTS WHO ARE OR HAVE BEEN ENROLLED IN A CHEMICAL D EPENDENCY/SUBSTANCE ABUSE PROGRAM, SOME INFORMATION MAY BE OMITTED. This clinica l summary was aggregated from multiple sources. Caution should be exercised in using it in the provision of clinical care. This summary normalizes information from multiple sources, and as a consequence, information in this document may ma terially change the coding, format and clinical context of patient data. In davis tion, data may be omitted in some cases. CLINICAL DECISIONS SHOULD BE BASED ON T HE PRIMARY CLINICAL RECORDS. [email or web address] provides no warranty or guara ntee of the accuracy or completeness of information in this document.The followi ng information is based on time limited clinical information
[2019-10-14] MEDS ORDERED: HYDR-3812 PO (14:20)
--- OUTSIDE RECORDS SUMMARY | 2019-10-14 14:20 | XMS REPORT | Continuity of Care Document ---
Author Organization Unknown Address Unknown Phone Unavailable Allergies Active Description Code Type Severity Reaction Onset Reported/Identified Relationship to Patient Clinical Status Yes No Known Drug Allergies [id number] Drug Allergy Unknown N/A 11/04/2015 Medications There is no data. Problems Date Dx Coded Attending Type Code Diagnosis Diagnosed By 12/21/2009 Ot 356.9 12/21/2009 Ot 410.71 12/21/2009 Ot V58.66 12/21/2009 Ot V58.69 02/26/2010 Ot 272.4 02/26/2010 Ot 396.3 02/26/2010 Ot 397.0 02/26/2010 Ot 401.9 02/26/2010 Ot 414.01 02/26/2010 Ot 426.4 02/26/2010 Ot 786.50 02/26/2010 Ot V10.46 02/26/2010 Ot V15.82 02/26/2010 Ot V45.82 02/26/2010 Ot V58.63 02/26/2010 Ot V58.66 02/26/2010 Ot V58.69 03/29/2010 Ot 355.8 03/29/2010 Ot 414.01 03/29/2010 Ot 786.50 03/29/2010 Ot V45.82 03/29/2010 Ot V58.63 03/29/2010 Ot V58.66 03/29/2010 Ot V58.69 04/26/2010 Ot V45.82 04/26/2010 Ot V57.89 07/06/2010 Ot V45.82 PER CUTANEOUS TRANSLUM CORON ANGIOPLASTY 07/06/2010 Ot V57.89 TERESITA ABILITATION PROC NEC 09/05/2010 Ot 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 09/05/2010 Ot 414.01 COR ONARY ATHEROSCLEROSIS OF [place] CORON 09/05/2010 Ot 794.30 ABN CARDIOVASC STUDY NOS 09/05/2010 Ot V45.82 PER CUTANEOUS TRANSLUM CORON ANGIOPLASTY 09/05/2010 Ot V58.63 KIM G- TERM(CURRENT)USE OF ANTIPLATELET/AN 09/05/2010 Ot V58.66 KIM G-TERM (CURRENT) USE OF ASPIRIN 09/05/2010 Ot V58.69 OTH MED,LT,CURRENT USE 03/30/2014 MUNA LOPEZ, SHONNA Almanzar Ot V76.51 SCREEN MAL NEOP-COLON 09/03/2014 Ot 414.01 09/03/2014 Ot 786.09 09/03/2014 Ot V58.66 09/03/2014 Ot V58.69 09/03/2014 Ot 414.00 09/03/2014 YANDELJOSE SUPERVISOR COMPONENT ASSEMBLER Ot 414.00 09/03/2014 YANDEL JOSE Almanzar SUPERVISOR COMPONENT ASSEMBLER Ot 786.09 09/03/2014 MUNA LOPEZ, SHONNA Almanzar Ot V72.84 09/30/2014 TONY LOPEZ, ELISEO Mccain Ot 564.00 10/01/2014 TONY LOPEZ, ELISEO Mccain Ot 564.00 11/11/2014 MUNA LOPEZ, SHONNA Almanzar Ot 455.9 RESIDUAL HEMORRHOID TAGS 11/11/2014 MUNA LOPEZ, SHONNA Almanzar Ot 565.0 ANAL FISSURE 11/11/2014 MUNA LOPEZ, SHONNA Almanzar Ot V74.8 SCREEN-BACTERIAL DIS NEC 05/07/2015 RONAKMA, GRACIE L SUPERVISOR COMPONENT ASSEMBLER Ot E78.5 05/07/2015 BAIMA, GRACIE L SUPERVISOR COMPONENT ASSEMBLER Ot I25.10 05/07/2015 BAIMA, GRACIE L SUPERVISOR COMPONENT ASSEMBLER Ot I77.9 05/07/2015 BAIMA, GRACIE L SUPERVISOR COMPONENT ASSEMBLER Ot R06.09 05/13/2015 BAIMA, GRACIE L SUPERVISOR COMPONENT ASSEMBLER Ot E78.5 05/13/2015 BAIMA, GRACIE L SUPERVISOR COMPONENT ASSEMBLER Ot I25.10 05/13/2015 BAIMA, GRACIE L SUPERVISOR COMPONENT ASSEMBLER Ot I77.9 05/13/2015 BAIMA, GRACIE L SUPERVISOR COMPONENT ASSEMBLER Ot R06.09 08/25/2015 SALVADOR MATHEWS MD Ot E78.0 PURE HYPERCHOLESTEROLEMIA 08/25/2015 SALVADOR MATHEWS MD Ot I25.10 ATHSCL HEART DISEASE OF [place] CORONARY 08/25/2015 SALVADOR MATHEWS MD Ot 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 08/25/2015 SALVADOR MATHEWS MD Ot Z95.5 PRESENCE OF CORONARY ANGIOPLASTY IMPLANT 08/25/2015 SALVADOR MATHEWS MD Ot E78.0 PURE HYPERCHOLESTEROLEMIA 08/25/2015 REID LOPEZ, SALVADOR Almanzar Ot I10 ESSENTIAL (PRIMARY) HYPERTENSION 08/25/2015 REID LOPEZ, SALVADOR Almanzar Ot I25.10 ATHSCL HEART DISEASE OF [place] CORONARY 08/25/2015 REID LOPEZ, SALVADOR Almanzar Ot J45.909 UNSPECIFIED ASTHMA, UNCOMPLICATED 08/25/2015 REID LOPEZ, SALVADOR Almanzar Ot 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 08/25/2015 REID LOPEZ, SALVADOR Almanzar Ot Z95.5 PRESENCE OF CORONARY ANGIOPLASTY IMPLANT 11/04/2015 MUNA LOPEZ, SHONNA Almanzar Ot 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 11/04/2015 MUNA LOPEZ, SHONNA Almanzar Ot Z01.818 ENCOUNTER FOR OTHER PREPROCEDURAL EXAMIN 11/08/2015 Ot 414.01 COR ONARY ATHEROSCLEROSIS OF [place] CORON 11/08/2015 Ot 786.09 RES PIRATORY ABNORM NEC 11/08/2015 Ot V58.66 KIM G-TERM (CURRENT) USE OF ASPIRIN 11/08/2015 Ot V58.69 OTH MED,LT,CURRENT USE 11/08/2015 Ot 414.00 COR ON ATHEROSCLER NOS TYPE VESSEL, NATIV 11/08/2015 JOSE HUMPHRIES SUPERVISOR COMPONENT ASSEMBLER Ot 414.00 CORON ATHEROSCLER NOS TYPE VESSEL, NATIV 11/08/2015 JOSE HUMPHRIES SUPERVISOR COMPONENT ASSEMBLER Ot 786.09 RESPIRATORY ABNORM NEC 11/08/2015 MUNA LOPEZ, SHONNA Almanzar Ot V72.84 EXAM PRE-OPERATIVE NOS 11/08/2015 TONY LOPEZ, ELISEO Mccain Ot 564.00 UNSPEC CONSTIPATION 11/08/2015 MUNA LOPEZ, SHONNA Almanzar Ot 569.42 ANAL OR RECTAL PAIN 11/08/2015 MUNA LOPEZ, SHONNA Almanzar Ot 787.91 DIARRHEA 11/08/2015 MUNA LOPEZ, SHONNA Almanzar Ot V72.84 EXAM PRE-OPERATIVE NOS 11/08/2015 GRACIE KIM SUPERVISOR COMPONENT ASSEMBLER Ot E78.5 HYPERLIPIDEMIA, UNSPECIFIED 11/08/2015 GRCAIE KIM SUPERVISOR COMPONENT ASSEMBLER Ot I25.10 ATHSCL HEART DISEASE OF [place] CORONARY 11/08/2015 GRACIE KIM SUPERVISOR COMPONENT ASSEMBLER Ot I77.9 DISORDER OF ARTERIES AND ARTERIOLES, UNS 11/08/2015 GRACIE KIM SUPERVISOR COMPONENT ASSEMBLER Ot R06.09 OTHER FORMS OF DYSPNEA 11/08/2015 MUNA LOPEZ, SHONNA Almanzar Ot 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 11/08/2015 MUNA LOPEZ, SHONNA Almanzar Ot 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 11/08/2015 MUNA LOPEZ, SHONNA Almanzar Ot Z01.818 ENCOUNTER FOR OTHER PREPROCEDURAL EXAMIN 11/09/2015 MUNA LOPEZ, SHONNA Almanzar Ot 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 02/21/2016 Ot 414.00 COR ON ATHEROSCLER NOS TYPE VESSEL, NATIV 02/21/2016 JOSE HUMPHRIES SUPERVISOR COMPONENT ASSEMBLER Ot 414.00 CORON ATHEROSCLER NOS TYPE VESSEL, NATIV 02/21/2016 JOSE HUMPHRIES SUPERVISOR COMPONENT ASSEMBLER Ot 786.09 RESPIRATORY ABNORM NEC 02/21/2016 MUNA LOPEZ, SHONNA Almanzar Ot V72.84 EXAM PRE-OPERATIVE NOS 02/21/2016 TONY LOPEZ, ELISEO Mccain Ot 564.00 UNSPEC CONSTIPATION 02/21/2016 MUNA LOPEZ, SHONNA Almanzar Ot 569.42 ANAL OR RECTAL PAIN 02/21/2016 MUNA LOPEZ, SHONAN Almanzar Ot 787.91 DIARRHEA 02/21/2016 MUNA LOPEZ, SHONNA Almanzar Ot V72.84 EXAM PRE-OPERATIVE NOS 02/21/2016 GRACIE KIM SUPERVISOR COMPONENT ASSEMBLER Ot E78.5 HYPERLIPIDEMIA, UNSPECIFIED 02/21/2016 GRACIE KIM L SUPERVISOR COMPONENT ASSEMBLER Ot I25.10 ATHSCL HEART DISEASE OF [place] CORONARY 02/21/2016 GRACIE KIM SUPERVISOR COMPONENT ASSEMBLER Ot I77.9 DISORDER OF ARTERIES AND ARTERIOLES, UNS 02/21/2016 GRACIE KIM SUPERVISOR COMPONENT ASSEMBLER Ot R06.09 OTHER FORMS OF DYSPNEA 02/23/2016 TONY LOPEZ, ELISEO Mccain Ot R06.2 WHEEZING 03/21/2016 TONY LOPEZ, ELISEO Mccain Ot R06.2 WHEEZING 03/22/2016 TONY LOPEZ, ELISEO Mccain Ot R06.2 WHEEZING 04/10/2016 DARIO LOPEZ FACC, SOLANGE DAVISP CCDS Ot I73.9 PERIPHERAL VASCULAR DISEASE, UNSPECIFIED 04/12/2016 DARIO LOPEZ FACC, SOLANGE DAVISP CCDS Ot I73.9 PERIPHERAL VASCULAR DISEASE, UNSPECIFIED 04/12/2016 DARIO LOPEZ FACC, SOLANGE FACP CCDS Ot E78.4 OTHER HYPERLIPIDEMIA 04/12/2016 DARIO LOPEZ FACC, SOLANGE DAVISP CCDS Ot I25.10 ATHSCL HEART DISEASE OF [place] CORONARY 04/12/2016 DARIO LOPEZ FACC, ALI FACP CCDS Ot I65.23 OCCLUSION AND STENOSIS OF BILATERAL [place] 04/12/2016 DARIO LOPEZ FACC, ALI FACP CCDS Ot I73.9 PERIPHERAL VASCULAR DISEASE, UNSPECIFIED 04/12/2016 DARIO LOPEZ FACC, ALI FACP CCDS Ot R06.09 OTHER FORMS OF DYSPNEA 04/17/2016 DARIO LOPEZ FACC, ALI FACP CCDS Ot E78.4 OTHER HYPERLIPIDEMIA 04/17/2016 DARIO LOPEZ FACC, ALI FACP CCDS Ot I25.10 ATHSCL HEART DISEASE OF [place] CORONARY 04/17/2016 DARIO LOPEZ FACC, ALI FACP CCDS Ot I65.23 OCCLUSION AND STENOSIS OF BILATERAL [place] 04/17/2016 DARIO LOPEZ FACC, ALI FACP CCDS Ot I73.9 PERIPHERAL VASCULAR DISEASE, UNSPECIFIED 04/17/2016 DARIO LOPEZ FACC, ALI FACP CCDS Ot R06.09 OTHER FORMS OF DYSPNEA 04/20/2016 DARIO LOPEZ FACC, ALI FACP CCDS Ot E78.4 OTHER HYPERLIPIDEMIA 04/20/2016 DARIO DAVISC, ALI FACP CCDS Ot I25.10 ATHSCL HEART DISEASE OF [place] CORONARY 04/20/2016 DARIO LOPEZ FACC, ALI FACP CCDS Ot I65.23 OCCLUSION AND STENOSIS OF BIL[place]AL [place] 04/20/2016 DARIO LOPEZ FACC, ALI FACP CCDS Ot R06.09 OTHER FORMS OF DYSPNEA 05/03/2016 DARIO LOPEZ FACC, ALI FACP CCDS Ot E78.4 OTHER HYPERLIPIDEMIA 05/03/2016 DARIO LOPEZ FACC, ALI FACP CCDS Ot I25.10 ATHSCL HEART DISEASE OF [place] CORONARY 05/03/2016 DARIO DAVISC, ALI FACP CCDS Ot I65.23 OCCLUSION AND STENOSIS OF BIL[place]AL [place] 05/03/2016 DARIO DAVISC, ALI FACP CCDS Ot I73.9 PERIPHERAL VASCULAR DISEASE, UNSPECIFIED 05/03/2016 DARIO DAVISC, ALI FACP CCDS Ot R06.09 OTHER FORMS OF DYSPNEA 05/09/2016 DARIO DAVISC, ALI FACP CCDS Ot E78.4 OTHER HYPERLIPIDEMIA 05/09/2016 DARIO DAVISC, ALI FACP CCDS Ot I25.10 ATHSCL HEART DISEASE OF [place] CORONARY 05/09/2016 DARIO LOPEZ FAC, ALI FACP CCDS Ot I65.23 OCCLUSION AND STENOSIS OF [place]IL[place] 05/09/2016 DARIO LOPEZ FACC, ALI FACP CCDS Ot R06.09 OTHER FORMS OF DYSPNEA 05/11/2016 DARIO LOPEZ FACC, ALI FACP CCDS Ot E78.4 OTHER HYPERLIPIDEMIA 05/11/2016 DARIO OLPEZ FACC, ALI FACP CCDS Ot I25.10 ATHSCL HEART DISEASE OF [place] CORONARY 05/11/2016 DARIO LOPEZ FACC, ALI FACP CCDS Ot I65.23 OCCLUSION AND STENOSIS OF [place] 05/11/2016 DARIO LOPEZ FACC, ALI FACP CCDS Ot I73.9 PERIPHERAL VASCULAR DISEASE, UNSPECIFIED 05/11/2016 DARIO LOPEZ FACC, ALI FACP CCDS Ot R06.09 OTHER FORMS OF DYSPNEA 05/17/2016 DARIO LOPEZ FACC, ALI FACP CCDS Ot E78.4 OTHER HYPERLIPIDEMIA 05/17/2016 DARIO LOPEZ FACC, ALI FACP CCDS Ot I25.10 ATHSCL HEART DISEASE OF [place] CORONARY 05/17/2016 DARIO LOPEZ [facility], ALI FACP CCDS Ot I65.23 OCCLUSION AND STENOSIS OF BILATER[place] 05/17/2016 DARIO LOPEZ [facility], ALI FACP CCDS Ot R06.09 OTHER FORMS OF DYSPNEA 05/28/2017 Ot 414.00 COR ON ATHEROSCLER NOS TYPE VESSEL, NATIV 05/28/2017 JOSE HUMPHRIES SUPERVISOR COMPONENT ASSEMBLER Ot 414.00 CORON ATHEROSCLER NOS TYPE VESSEL, NATIV 05/28/2017 JOSE HUMPHRIES SUPERVISOR COMPONENT ASSEMBLER Ot 786.09 RESPIRATORY ABNORM NEC 05/28/2017 MUNA LOPEZ, SHONNA Almanzar Ot V72.84 EXAM PRE-OPERATIVE NOS 05/28/2017 TONY LOPEZ, ELISEO Mccain Ot 564.00 UNSPEC CONSTIPATION 05/28/2017 SHONNA TORO MD Ot 569.42 ANAL OR RECTAL PAIN 05/28/2017 MUNA LOPEZ, SHONNA Almanzar Ot 787.91 DIARRHEA 05/28/2017 SHONNA TORO MD Ot V72.84 EXAM PRE-OPERATIVE NOS 05/28/2017 GRACIE KIM SUPERVISOR COMPONENT ASSEMBLER Ot E78.5 HYPERLIPIDEMIA, UNSPECIFIED 05/28/2017 GRACIE KIM L SUPERVISOR COMPONENT ASSEMBLER Ot I25.10 ATHSCL HEART DISEASE OF [place] CORONARY 05/28/2017 BAIMA, GRACIE L SUPERVISOR COMPONENT ASSEMBLER Ot I77.9 DISORDER OF ARTERIES AND ARTERIOLES, UNS 05/28/2017 JULIO GRACIE L SUPERVISOR COMPONENT ASSEMBLER Ot R06.09 OTHER FORMS OF DYSPNEA 05/28/2017 TONY LOPEZ, ELISEO Mccain Ot R06.2 WHEEZING 05/28/2017 DARIO LOPEZ FACC, ALI FACP CCDS Ot E78.4 OTHER HYPERLIPIDEMIA 05/28/2017 DARIO LOPEZ FACC, ALI FACP CCDS Ot I25.10 ATHSCL HEART DISEASE OF [place] CORONARY 05/28/2017 DARIO LOPEZ FACC, ALI FACP CCDS Ot I65.23 OCCLUSION AND STENOSIS OF B[place] 05/28/2017 DARIO LOPEZ FACC, ALI FACP CCDS Ot I73.9 PERIPHERAL VASCULAR DISEASE, UNSPECIFIED 05/28/2017 DARIO LOPEZ FACC, ALI FACP CCDS Ot R06.09 OTHER FORMS OF DYSPNEA 05/28/2017 DARIO LOPEZ FACC, ALI FACP CCDS Ot E78.4 OTHER HYPERLIPIDEMIA 05/28/2017 DARIO LOPEZ FACC, ALI FACP CCDS Ot I25.10 ATHSCL HEART DISEASE OF [place] CORONARY 05/28/2017 DARIO LOPEZ FACC, ALI FACP CCDS Ot I65.23 OCCLUSION AND STENOSIS OF BILATERAL [place] 05/28/2017 DARIO LOPEZ FACC, ALI FACP CCDS Ot R06.09 OTHER FORMS OF DYSPNEA 06/01/2017 RONAKMA GRACIE L SUPERVISOR COMPONENT ASSEMBLER Ot E78.5 HYPERLIPIDEMIA, UNSPECIFIED 06/01/2017 BAIMA, GRACIE L SUPERVISOR COMPONENT ASSEMBLER Ot I25.10 ATHSCL HEART DISEASE OF [place] CORONARY 06/01/2017 BAIMA, GRACIE L SUPERVISOR COMPONENT ASSEMBLER Ot I35.1 NONRHEUMATIC AORTIC (VALVE) INSUFFICIENC 06/01/2017 BAIMA, GRACIE L SUPERVISOR COMPONENT ASSEMBLER Ot I65.29 OCCLUSION AND STENOSIS OF UNSPECIFIED CA 06/01/2017 BAIMA, GRACIE L SUPERVISOR COMPONENT ASSEMBLER Ot R06.09 OTHER FORMS OF DYSPNEA 06/28/2017 RONAKMA, GRACIE L SUPERVISOR COMPONENT ASSEMBLER Ot E78.5 HYPERLIPIDEMIA, UNSPECIFIED 06/28/2017 BAIMA, GRACIE L SUPERVISOR COMPONENT ASSEMBLER Ot I25.10 ATHSCL HEART DISEASE OF [place] CORONARY 06/28/2017 BAIMA GRACIE L SUPERVISOR COMPONENT ASSEMBLER Ot I35.1 NONRHEUMATIC AORTIC (VALVE) INSUFFICIENC 06/28/2017 GRACIE KIM SUPERVISOR COMPONENT ASSEMBLER Ot I65.29 OCCLUSION AND STENOSIS OF UNSPECIFIED CA 06/28/2017 GRACIE KIM SUPERVISOR COMPONENT ASSEMBLER Ot R06.09 OTHER FORMS OF DYSPNEA 07/11/2017 TONY LOPEZ, ELISEO Mccain Ot Z29.8 ENCOUNTER FOR OTHER SPECIFIED PROPHYLACT 07/19/2017 TONY LOPEZ, ELIESO Adán Ot Z29.8 ENCOUNTER FOR OTHER SPECIFIED PROPHYLACT 08/12/2017 TONY LOPEZ, ELISEO Mccain Ot Z29.8 ENCOUNTER FOR OTHER SPECIFIED PROPHYLACT 09/12/2017 TONY LOPEZ, ELISEO Mccain Ot Z29.8 ENCOUNTER FOR OTHER SPECIFIED PROPHYLACT 09/19/2017 TONY LOPEZ, ELISEO Mccain Ot Z29.8 ENCOUNTER FOR OTHER SPECIFIED PROPHYLACT 10/30/2017 MUNA LOPEZ, SHONNA Almanzar Ot Z01.818 ENCOUNTER FOR OTHER PREPROCEDURAL EXAMIN 08/13/2018 MUNA LOPEZ, SHONNA Almanzar Ot V72.84 EXAM PRE-OPERATIVE NOS 08/13/2018 TONY LOPEZ, ELISEO Mccain Ot 564.00 UNSPEC CONSTIPATION 08/13/2018 MUNA LOPEZ, SHONNA M Ot 569.42 ANAL OR RECTAL PAIN 08/13/2018 MUNA LOPEZ, SHONNA M Ot 787.91 DIARRHEA 08/13/2018 MUNA LOPEZ, SHONNA M Ot V72.84 EXAM PRE-OPERATIVE NOS 08/13/2018 GRACIE KIM SUPERVISOR COMPONENT ASSEMBLER Ot E78.5 HYPERLIPIDEMIA, UNSPECIFIED 08/13/2018 GRACIE KIM SUPERVISOR COMPONENT ASSEMBLER Ot I25.10 ATHSCL HEART DISEASE OF [place] CORONARY 08/13/2018 GRACIE KIM SUPERVISOR COMPONENT ASSEMBLER Ot I77.9 DISORDER OF ARTERIES AND ARTERIOLES, UNS 08/13/2018 GRACIE KIM SUPERVISOR COMPONENT ASSEMBLER Ot R06.09 OTHER FORMS OF DYSPNEA 08/13/2018 TONY LOPEZ, ELISEO D Ot R06.2 WHEEZING 08/13/2018 DARIO LOPEZ FACShweta, ALI FACP CCDS Ot E78.4 OTHER HYPERLIPIDEMIA 08/13/2018 DARIO LOPEZ FACShweta, ALI FACP CCDS Ot I25.10 ATHSCL HEART DISEASE OF [place] CORONARY 08/13/2018 DARIO LOPEZ FACShweta, ALI FACP CCDS Ot I65.23 OCCLUSION AND STENOSIS OF BILATERAL [place] 08/13/2018 DARIO LOPEZ FACC, ALI FACP CCDS Ot I73.9 PERIPHERAL VASCULAR DISEASE, UNSPECIFIED 08/13/2018 DARIO LOPEZ FACC, ALI FACP CCDS Ot R06.09 OTHER FORMS OF DYSPNEA 08/13/2018 DARIO LOPEZ FACC, ALI FACP CCDS Ot E78.4 OTHER HYPERLIPIDEMIA 08/13/2018 DARIO LOPEZ FACC, ALI FACP CCDS Ot I25.10 ATHSCL HEART DISEASE OF [place] CORONARY 08/13/2018 DARIO LOPEZ FACC, ALI FACP CCDS Ot I65.23 OCCLUSION AND STENOSIS OF BILATERAL [place] 08/13/2018 DARIO LOPEZ FACC, ALI FACP CCDS Ot R06.09 OTHER FORMS OF DYSPNEA 08/13/2018 RONAKMA GRACIE L SUPERVISOR COMPONENT ASSEMBLER Ot E78.5 HYPERLIPIDEMIA, UNSPECIFIED 08/13/2018 BAIMA GRACIE L SUPERVISOR COMPONENT ASSEMBLER Ot I25.10 ATHSCL HEART DISEASE OF [place] CORONARY 08/13/2018 JULIO GRACIE L SUPERVISOR COMPONENT ASSEMBLER Ot I35.1 NONRHEUMATIC AORTIC (VALVE) INSUFFICIENC 08/13/2018 RONAKMADENISEGRACIE L SUPERVISOR COMPONENT ASSEMBLER Ot I65.29 OCCLUSION AND STENOSIS OF UNSPECIFIED CA 08/13/2018 RONAKMA GRACIE L SUPERVISOR COMPONENT ASSEMBLER Ot R06.09 OTHER FORMS OF DYSPNEA 08/13/2018 MUNA LOPEZ, SHONNA Almanzar Ot Z01.818 ENCOUNTER FOR OTHER PREPROCEDURAL EXAMIN 08/19/2018 DARIO LOPEZ FACC, SOLANGE FACP CCDS Ot E78.5 HYPERLIPIDEMIA, UNSPECIFIED 08/19/2018 DARIO LOPEZ FACC, ALI FACP CCDS Ot G62.9 POLYNEUROPATHY, UNSPECIFIED 08/19/2018 DARIO LOPEZ FACC, ALI FACP CCDS Ot I25.10 ATHSCL HEART DISEASE OF [place] CORONARY 08/19/2018 DARIO LOPEZ FACC, ALI FACP CCDS Ot I77.9 DISORDER OF ARTERIES AND ARTERIOLES, UNS 09/04/2018 DARIO LOPEZ FACC, SOLANGE FACP CCDS Ot E78.5 HYPERLIPIDEMIA, UNSPECIFIED 09/04/2018 DARIO LOPEZ FACC, ALI FACP CCDS Ot G62.9 POLYNEUROPATHY, UNSPECIFIED 09/04/2018 DARIO LOPEZ FACC, ALI FACP CCDS Ot I25.10 ATHSCL HEART DISEASE OF [place] CORONARY 09/04/2018 DARIO LPOEZ FACC, ALI FACP CCDS Ot I77.9 DISORDER OF ARTERIES AND ARTERIOLES, UNS 09/10/2018 DARIO LOPEZ FACC, SOLANGE FACP CCDS Ot E78.5 HYPERLIPIDEMIA, UNSPECIFIED 09/10/2018 DARIO LOPEZ FACC, SOLANGE FACP CCDS Ot G62.9 POLYNEUROPATHY, UNSPECIFIED 09/10/2018 DARIO LOPEZ FACC, SOLANGE FACP CCDS Ot I25.10 ATHSCL HEART DISEASE OF [place] CORONARY 09/10/2018 DARIO LOPEZ FACC, SOLANGE FACP CCDS Ot I77.9 DISORDER OF ARTERIES AND ARTERIOLES, UNS Procedures Code Description Performed By Per formed On [id number] DI LATION OF STOMACH, PYLORUS, ENDO 08/21/[id number] ANTOINE OF STOMACH, PERCUTANEOUS ENDOSC 08/21/2015 [id number] 08/21/2015 [id number] EX CISION OF DUODENUM, ENDO, DIAGN 08/21/2015 Results There is no data. Encounters ACCT No. Visit Date/Time Discharge Status Pt. Type Provider Facility Loc./Unit Complaint [id number] 08/13/2018 11:03:00 019 23:59:59 CLS Outpatient DARIO LOPEZ FACC, SOLANGE FARRAR CC DS [facility] CARD CAD, CAROTID AR TERIAL DISEASE [id number] 10/29/2017 05:48:00 018 23:59:59 CLS Outpatient SHONNA TORO MD [facility] PREOP EGD [id number] 09/13/2017 00:14:00 018 23:59:59 CLS Preadmit ELISEO JIMENEZ MD [facility] [place] [address] CARDIAC REHAB PHASE 3 [id number] 08/20/2017 13:18:00 018 00:01:00 DIS Outpatient ELISEO JIMENEZ MD [facility] [place] [address] CARDIAC REHAB PHASE 3 [id number] 08/08/2017 13:07:00 018 00:01:00 DIS Outpatient ELISEO JIMENEZ MD [facility] [place] [address] CARDIAC REHAB PHASE 3 [id number] 07/11/2017 13:07:00 018 00:01:00 DIS Outpatient ELISEO JIMENEZ MD [facility] CR3 CARDIAC REHAB PHASE 3 [id number] 05/31/2017 13:02:00 018 23:59:59 CLS Outpatient GRACIE KIM [facility] CARD CAD [id number] 04/18/2016 11:00:00 017 23:59:59 CLS Outpatient DARIO LOPEZ FACC, SOLANGE FARRAR CC DS [facility] CARD CAD,CAROTID ART ERIAL DISEASE [id number] 04/11/2016 14:04:00 017 23:59:59 CLS Outpatient DARIO LOPEZ FACC, SOLANGE FARRAR CC DS [facility] RAD LT LEG CLAUDLIZA TICAROL,CAD [id number] 02/21/2016 13:04:00 016 23:59:59 CLS Outpatient ELISEO JIMENEZ MD [facility] RAD WHEEZING [id number] 11/08/2015 07:00:00 016 09:35:00 DIS Outpatient SHONNA TORO MD [facility] SDC PYLORIC CHANNEL STRICTU RE [id number] 11/04/2015 05:56:00 016 12:59:00 DIS Outpatient SHONNA TORO MD [facility] PREOP PYLORIC CHRONIC STRICTU RE [id number] 08/20/2015 14:43:00 016 15:12:00 DIS Inpatient SALVADOR MATHEWS MD [facility] 4TH GASTRIC OUTLET OBSTRUCTION [id number] 04/13/2015 09:40:00 016 23:59:59 CLS Outpatient GRACIE KIM [facility] CARD CAD,DYSPNEA [id number] 11/11/2014 10:43:00 015 16:40:00 DIS Outpatient SHONNA TORO MD [facility] SDC RECTAL PAIN;DIARRHEA [id number] 11/09/2014 05:37:00 015 23:59:59 CLS Outpatient SHONNA TORO MD [facility] PREOP RECTAL PAIN;DIARRHEA [id number] 09/03/2014 10:37:00 015 23:59:59 CLS Outpatient TONY LOPEZ, ELISEO Mccain [facility] RAD CONSTIPATION [id number] 03/30/2014 08:46:00 015 11:50:00 DIS Outpatient SHONNA TORO MD [facility] SDC SCREENING [id number] 03/26/2014 06:18:00 015 23:59:59 CLS Outpatient SHONNA TORO MD [facility] PREOP SCREENING [id number] 09/04/2012 10:55:00 013 23:59:59 CLS Outpatient JOSE HUMPHRIES SUPERVISOR COMPONENT ASSEMBLER [facility] RAD CAD,DYSPNEA [id number] 10/14/2019 12:50:[address] Emergency DORINA LOPEZ, NISSA Staley [facility] ER FELL AT HOME [id number] 10/30/2017 08:26:00 Document Registration [id number] 09/03/2014 10:38:00 Document Registration [id number] 09/03/2014 10:38:00 Document Registration [id number] 02/28/2012 12:14:00 Document Registration [id number] 08/25/2010 11:13:00 Document Registration [id number] 03/30/2010 11:00:00 Document Registration [id number] 03/28/2010 13:32:00 Document Registration [id number] 02/25/2010 09:21:00 Document Registration [id number] 12/21/2009 13:10:00 Document Registration
[2019-10-14 14:31] VITALS: BP 128/78
== END 2019-10-14 14:29 | disposition home or self-care (01) ==
LOC: EDUNIT# 12:46 → ER 12:50
DX: S22.31XA Fracture of one rib, right side, initial encounter for closed fracture (principal); R40.2410 Glasgow coma scale score 13-15, unspecified time; E78.00 Pure hypercholesterolemia, unspecified; E66.9 Obesity, unspecified; Z68.29 Body mass index [BMI] 29.0-29.9, adult; W07.XXXA Fall from chair, initial encounter; Y92.009 Unspecified place in unspecified non-institutional (private) residence as the place of occurrence of the external cause
CPT/HCPCS: 71100